=== PATIENT | male | born 1955 | race Caucasian/White ===

== ENCOUNTER → 2018-03-01 08:57 | Outpatient (CLI) | payer OTHER, SELFPAY ==
[2018-03-01 09:54] LABS: Alanine Aminotransferase 37 IU/L (21-72); Albumin 4.5 g/dL (3.5-5.0); Albumin Globulin Ratio 1.6 (1.0-2.8); Alkaline Phosphatase 69 U/L (38-126); Aspartate Aminotransferase 28 IU/L (17-59); BUN Creatinine Ratio 23.3 (6-22); Bilirubin Total 0.7 mg/dL (0.2-1.3); Blood Urea Nitrogen 21 mg/dL (9-20); Calcium 9.1 mg/dL (8.4-10.2); Carbon Dioxide 29 mmol/L (22-32); Chloride 101 mmol/L (98-107); Cholesterol 152 mg/dL (140-199); Estimated Glomerular Filt Rate > 60.0 mL/min (>60); Globulin 2.8 g/dL (1.7-4.1); Glucose 96 mg/dL (80-110); HDL Cholesterol 44 mg/dL (40-60); HEMOLYSIS < 15 (0-50); LDL Cholesterol Calculated 89 mg/dL (<100); Sodium 139 mmol/L (137-145); Total Protein 7.3 g/dL (6.3-8.2); Triglycerides 93 mg/dL (35-150)
[2018-03-01 10:27] LABS: Prostate Specific Antigen Scrn 3.33 ng/mL (0.1-4.0)
== END ==
PROVIDERS: PCP Internal Medicine; Visit Provider Internal Medicine
DX: E78.2 Mixed hyperlipidemia (principal); Z12.5 Encounter for screening for malignant neoplasm of prostate
CPT/HCPCS: 36415; 80053; 80061; G0103

== ENCOUNTER → 2019-04-21 12:07 | Outpatient (CLI) | payer MEDICARE, OTHER, SELFPAY ==
[2019-04-21 13:14] LABS: Alanine Aminotransferase 47 IU/L (<50); Albumin 4.9 g/dL (3.5-5.0); Albumin Globulin Ratio 1.6 (1.0-2.8); Alkaline Phosphatase 96 U/L (38-126); Aspartate Aminotransferase 39 IU/L (17-59); BUN Creatinine Ratio 18.9 (6-22); Bilirubin Total 0.7 mg/dL (0.2-1.3); Blood Urea Nitrogen 18 mg/dL (9-20); Calcium 9.5 mg/dL (8.4-10.2); Carbon Dioxide 30 mmol/L (22-32); Chloride 102 mmol/L (98-107); Cholesterol 174 mg/dL (140-199); Estimated Glomerular Filt Rate > 60.0 mL/min (>60); Globulin 3.1 g/dL (1.7-4.1); Glucose 98 mg/dL (80-110); HDL Cholesterol 46 mg/dL (40-60); HEMOLYSIS < 15 (0-50); LDL Cholesterol Calculated 101 mg/dL (<100); Potassium 4.7 mmol/L (3.4-5.1); Sodium 138 mmol/L (137-145); Triglycerides 135 mg/dL (35-150)
[2019-04-21 13:41] LABS: Prostate Specific Antigen Scrn 3.13 ng/mL (0.1-4.0)
== END ==
PROVIDERS: Family Provider Internal Medicine; PCP Internal Medicine; Referring Provider Internal Medicine; Visit Provider Internal Medicine
DX: Z12.5 Encounter for screening for malignant neoplasm of prostate (principal); Z13.1 Encounter for screening for diabetes mellitus; Z79.899 Other long term (current) drug therapy; E78.2 Mixed hyperlipidemia
CPT/HCPCS: 80053; 80061; G0103

== ENCOUNTER → 2020-04-27 09:42 | Outpatient (CLI) | payer MEDICARE, OTHER, SELFPAY ==
[2020-04-27 10:36] LABS: Alanine Aminotransferase 49 IU/L (<50); Albumin 4.5 g/dL (3.5-5.0); Albumin Globulin Ratio 1.6 (1.0-2.8); Alkaline Phosphatase 85 U/L (38-126); Aspartate Aminotransferase 38 IU/L (17-59); BUN Creatinine Ratio 22.6 (6-22); Bilirubin Total 0.6 mg/dL (0.2-1.3); Blood Urea Nitrogen 19 mg/dL (9-20); Calcium 9.3 mg/dL (8.4-10.2); Carbon Dioxide 28 mmol/L (22-32); Chloride 102 mmol/L (98-107); Cholesterol 168 mg/dL (140-199); Estimated Glomerular Filt Rate > 60.0 mL/min (>60); Globulin 2.8 g/dL (1.7-4.1); Glucose 97 mg/dL (80-110); HDL Cholesterol 52 mg/dL (40-60); HEMOLYSIS < 15 (0-50); LDL Cholesterol Calculated 87 mg/dL (<100); Sodium 137 mmol/L (137-145); Total Protein 7.3 g/dL (6.3-8.2); Triglycerides 145 mg/dL (35-150)
[2020-04-27 11:05] LABS: Prostate Specific Antigen Scrn 3.74 ng/mL (0.1-4.0)
== END ==
PROVIDERS: Family Provider Internal Medicine; PCP Internal Medicine; Referring Provider Internal Medicine; Visit Provider Internal Medicine
DX: E78.2 Mixed hyperlipidemia (principal); Z12.5 Encounter for screening for malignant neoplasm of prostate
CPT/HCPCS: 36415; 80053; 80061; G0103

== ENCOUNTER → 2021-04-29 11:02 | Outpatient (CLI) | payer MEDICARE, OTHER, SELFPAY ==
[2021-04-29 12:41] LABS: Alanine Aminotransferase 31 IU/L (<50); Albumin 4.4 g/dL (3.5-5.0); Albumin Globulin Ratio 1.8 (1.0-2.8); Alkaline Phosphatase 75 U/L (38-126); Aspartate Aminotransferase 27 IU/L (17-59); BUN Creatinine Ratio 17.2 (6-22); Bilirubin Total 0.7 mg/dL (0.2-1.3); Blood Urea Nitrogen 15 mg/dL (9-20); Calcium 8.9 mg/dL (8.4-10.2); Carbon Dioxide 28 mmol/L (22-32); Chloride 102 mmol/L (98-107); Cholesterol 149 mg/dL (140-199); Estimated Glomerular Filt Rate > 60.0 mL/min (>60); Globulin 2.5 g/dL (1.7-4.1); Glucose 87 mg/dL (80-110); HDL Cholesterol 53 mg/dL (40-60); HEMOLYSIS < 15 (0-50); LDL Cholesterol Calculated 84 mg/dL (<100); Potassium 4.5 mmol/L (3.4-5.1); Sodium 139 mmol/L (137-145); Total Protein 6.9 g/dL (6.3-8.2); Triglycerides 59 mg/dL (35-150)
[2021-04-29 13:11] LABS: Prostate Specific Antigen Scrn 3.54 ng/mL (0.1-4.0)
== END ==
PROVIDERS: Family Provider Internal Medicine; PCP Internal Medicine; Referring Provider Internal Medicine; Visit Provider Internal Medicine
DX: E78.2 Mixed hyperlipidemia (principal); Z12.5 Encounter for screening for malignant neoplasm of prostate; Z79.899 Other long term (current) drug therapy
CPT/HCPCS: 36415; 80053; 80061; G0103

== ENCOUNTER → 2022-05-02 11:23 | Outpatient (CLI) | payer MEDICARE, OTHER, SELFPAY ==
[2022-05-02 12:26] LABS: Alanine Aminotransferase 41 IU/L (<50); Albumin 4.3 g/dL (3.5-5.0); Albumin Globulin Ratio 1.4 (1.0-2.8); Alkaline Phosphatase 71 U/L (38-126); Aspartate Aminotransferase 32 IU/L (17-59); BUN Creatinine Ratio 22.8 (6-22); Bilirubin Total 0.6 mg/dL (0.2-1.3); Blood Urea Nitrogen 18 mg/dL (9-20); Calcium 8.8 mg/dL (8.4-10.2); Carbon Dioxide 29 mmol/L (22-32); Chloride 104 mmol/L (98-107); Cholesterol 147 mg/dL (140-199); Estimated Glomerular Filt Rate > 60 mL/min (>60); Globulin 3.1 g/dL (1.7-4.1); Glucose 88 mg/dL (80-110); HDL Cholesterol 55 mg/dL (40-60); HEMOLYSIS < 15 (0-50); LDL Cholesterol Calculated 78 mg/dL (<100); Sodium 139 mmol/L (137-145); Total Protein 7.4 g/dL (6.3-8.2); Triglycerides 71 mg/dL (35-150)
[2022-05-02 12:55] LABS: Prostate Specific Antigen Scrn 4.86 ng/mL (0.1-4.0)
[2022-05-08 08:22] LABS: PSA Free % 13.6
[2022-05-08 08:24] LABS: PSA, Total 6.6
== END ==
PROVIDERS: Family Provider Internal Medicine; PCP Internal Medicine; Referring Provider Internal Medicine; Visit Provider Internal Medicine
DX: E78.2 Mixed hyperlipidemia (principal); Z12.5 Encounter for screening for malignant neoplasm of prostate; R97.20 Elevated prostate specific antigen [PSA]
CPT/HCPCS: 36415; 80053; 80061; 84153; 84154; G0103

== ENCOUNTER → 2022-10-03 10:24 | Outpatient (CLI) | payer MEDICARE, OTHER, SELFPAY ==
[2022-10-03 11:44] LABS: Prostate Specific Antigen 4.58 ng/mL (0.10-4.00)
== END ==
PROVIDERS: Family Provider Internal Medicine; PCP Internal Medicine; Referring Provider Internal Medicine; Visit Provider Internal Medicine
DX: R97.20 Elevated prostate specific antigen [PSA] (principal)
CPT/HCPCS: 36415; 84153

== ENCOUNTER → 2023-05-04 11:15 | Outpatient (CLI) | payer MEDICARE, OTHER, SELFPAY ==
[2023-05-04 12:08] LABS: Add Manual Diff / Slide Review NO; Basophils Absolute Auto 0 /uL (0-100); Basophils Percent Auto 0.8 % (0-2); Eosinophils Absolute Auto 100 /uL (0-450); Eosinophils Percent Auto 3.7 % (2-4); Hematocrit 41.3 % (41-53); Hemoglobin 14.4 g/dL (13.5-17.5); Lymphocytes Absolute Auto 1400 /uL (1100-4500); Lymphocytes Percent Auto 40.3 % (25-40); Mean Corpuscular HGB Conc 34.8 % (30-36); Mean Corpuscular Hemoglobin 30.8 PG (26-34); Mean Corpuscular Volume 88.5 fL (80-100); Monocytes Absolute Auto 200 /uL (0-900); Monocytes Percent Auto 6.5 % (3-14); Neutrophils Absolute Auto 1800 /uL (1500-7000); Neutrophils Percent Auto 48.7 % (50-75); Platelet Count 184 X10^3/uL (150-400); Red Blood Cell Count 4.67 X10^6/uL (4.5-5.9); Red Cell Distribution Width 13.1 % (11.6-14.8); White Blood Cell Count 3.6 X10^3/uL (4.5-11.0)
[2023-05-04 12:33] LABS: Alanine Aminotransferase 34 IU/L (<50); Albumin 4.3 g/dL (3.5-5.0); Albumin Globulin Ratio 1.4 (1.0-2.8); Alkaline Phosphatase 70 U/L (38-126); Aspartate Aminotransferase 41 IU/L (17-59); BUN Creatinine Ratio 20.5 (6-22); Bilirubin Total 0.8 mg/dL (0.2-1.3); Blood Urea Nitrogen 17 mg/dL (9-20); Carbon Dioxide 29 mmol/L (22-32); Chloride 106 mmol/L (98-107); Cholesterol 134 mg/dL (140-199); Estimated Glomerular Filt Rate > 60 mL/min (>60); Glucose 94 mg/dL (80-110); HDL Cholesterol 50 mg/dL (40-60); HEMOLYSIS 50 (0-50); LDL Cholesterol Calculated 70 mg/dL (<100); Potassium 4.5 mmol/L (3.4-5.1); Sodium 139 mmol/L (137-145); Total Protein 7.3 g/dL (6.3-8.2); Triglycerides 69 mg/dL (35-150)
[2023-05-04 13:06] LABS: Prostate Specific Antigen 8.99 ng/mL (0.10-4.00)
== END ==
PROVIDERS: Family Provider Internal Medicine; PCP Internal Medicine; Referring Provider Internal Medicine; Visit Provider Internal Medicine
DX: R97.20 Elevated prostate specific antigen [PSA] (principal); E78.2 Mixed hyperlipidemia; D64.9 Anemia, unspecified
CPT/HCPCS: 36415; 80053; 80061; 84153; 85025

== ENCOUNTER → 2023-06-23 10:58 | Outpatient (CLI) | payer MEDICARE, OTHER, SELFPAY ==
--- NOTE | 2023-06-23 11:00 | DI.MRI.S_ITS ---
PROCEDURE: MR PELVIC PROSTATE PROTOCOL INDICATIONS: Elevated and rising PSA TECHNIQUE: Coronal HASTE, axial T1 FSE with fat saturation, 3-plane nonbreath-hold T2 FSE. After the administration of contrast, dynamic axial, delayed axial and coronal VIBE or 2-D FLASH with fat saturation through the pelvis. Diffusion weighted imaging and ADC was performed. COMPARISON: None. FINDINGS: Image quality: Diffusion weighted and dynamic contrast enhanced images are diagnostic. Prostate: Gland size is 5.3 x 5.5 x 5.8 cm; ellipsoid gland volume is 88 mL. PSA density of 0.10. Encapsulated and partially encapsulated nodules within the transition zone; PI-RADS 1-2. No PI-RADS 3 through 5 lesions. Genitourinary system: Bladder wall thickness is normal. Distal ureters are non distended. Small bilateral testicular hydroceles. Bowel and peritoneum: No pathologic free pelvic fluid. Inferior colon and small bowel loops are normal in caliber. Nodes and vessels: No pelvic or inguinal adenopathy by size criteria. Iliac vessels are normal in caliber. Soft tissues: No inguinal hernias. Bones: Marrow demonstrates normal overall signal, without lesions to suggest metastases. IMPRESSION: No PI-RADS 3 through 5 lesions. Dictated by: Ricki Saenz M.D. on 06/25/2023 at 8:54 Approved by: Ricki Saenz M.D. on 06/25/2023 at 9:03
== END ==
LOC: MRI 10:59
PROVIDERS: Family Provider Internal Medicine; PCP Internal Medicine; Referring Provider Urology; Visit Provider Urology
DX: N42.9 Disorder of prostate, unspecified (principal); N43.3 Hydrocele, unspecified; R97.20 Elevated prostate specific antigen [PSA]
CPT/HCPCS: 72197; A9579

== ENCOUNTER → 2023-09-14 10:00 | Outpatient (CLI) | payer MEDICARE, OTHER, SELFPAY ==
[2023-09-15 21:07] LABS: PSA Free % 17.3 % (.); PSA, Total 7.1 ng/mL (0.0-4.0)
== END ==
PROVIDERS: Family Provider Internal Medicine; PCP Internal Medicine; Referring Provider Urology; Visit Provider Urology
DX: R97.20 Elevated prostate specific antigen [PSA] (principal)
CPT/HCPCS: 36415; 84153; 84154

== ENCOUNTER → 2023-12-31 09:58 | Outpatient (CLI) | payer MEDICARE, OTHER, SELFPAY ==
[2024-01-01 07:38] LABS: PSA Free % 14.3 % (.)
== END ==
LOC: LAB 10:00
PROVIDERS: Family Provider Internal Medicine; PCP Internal Medicine; Referring Provider Urology; Visit Provider Urology
DX: R97.20 Elevated prostate specific antigen [PSA] (principal); Z80.42 Family history of malignant neoplasm of prostate
CPT/HCPCS: 36415; 84153; 84154

== ENCOUNTER → 2024-03-31 09:10 | Outpatient (CLI) | payer MEDICARE, OTHER, SELFPAY ==
[2024-04-01 07:09] LABS: PSA Free % 14.3 % (.); PSA, Total 8.7 ng/mL (0.0-4.0)
== END ==
PROVIDERS: Family Provider Internal Medicine; PCP Internal Medicine; Referring Provider Urology; Visit Provider Urology
DX: R33.9 Retention of urine, unspecified (principal); R97.20 Elevated prostate specific antigen [PSA]
CPT/HCPCS: 36415; 84153; 84154

== ENCOUNTER → 2024-05-05 14:00 | Outpatient (CLI) | payer MEDICARE, OTHER, SELFPAY ==
[2024-05-05 15:06] LABS: Alanine Aminotransferase 27 IU/L (<50); Albumin 4.2 g/dL (3.5-5.0); Albumin Globulin Ratio 1.8 (1.0-2.8); Alkaline Phosphatase 60 U/L (38-126); Aspartate Aminotransferase 27 IU/L (17-59); BUN Creatinine Ratio 15.6 (6-22); Bilirubin Total 0.7 mg/dL (0.2-1.3); Blood Urea Nitrogen 15 mg/dL (9-20); Calcium 9.4 mg/dL (8.4-10.2); Carbon Dioxide 30 mmol/L (22-32); Chloride 105 mmol/L (98-107); Cholesterol 145 mg/dL (140-199); Estimated Glomerular Filt Rate > 60 mL/min (>60); Globulin 2.3 g/dL (1.7-4.1); Glucose 92 mg/dL (80-110); HDL Cholesterol 57 mg/dL (40-60); HEMOLYSIS < 15 (0-50); LDL Cholesterol Calculated 75 mg/dL (<100); Potassium 4.6 mmol/L (3.4-5.1); Sodium 140 mmol/L (137-145); Total Protein 6.5 g/dL (6.3-8.2); Triglycerides 67 mg/dL (35-150)
== END ==
PROVIDERS: Family Provider Internal Medicine; PCP Internal Medicine; Referring Provider Internal Medicine; Visit Provider Internal Medicine
DX: E78.2 Mixed hyperlipidemia (principal)
CPT/HCPCS: 36415; 80053; 80061

== ENCOUNTER 2024-05-26 08:09 | Day surgery (SDC) | payer MEDICARE, OTHER, SELFPAY ==
[2024-05-26] VITALS (10 sets, daily range): BP systolic 86–127; BP diastolic 38–75; PULSE 61–99; RESP 12–23; TEMP 36.2–36.6; O2SAT 88–100
--- NOTE | 2024-05-26 | DI.RAD.S_ITS ---
PROCEDURE: XR CHEST 1V INDICATIONS: expiratory wheeze bilaterally post procedure TECHNIQUE: One view of the chest was acquired. COMPARISON: None. FINDINGS: Surgical changes and devices: None. Lungs and pleura: Lungs are clear. No pleural effusions or pneumothorax. Mediastinum: Mediastinal contours appear normal. Heart size is normal. Bones and chest wall: No suspicious bony lesions. Overlying soft tissues appear unremarkable. IMPRESSION: No acute cardiothoracic process. Dictated by: Misbah Elizabeth M.D. on 05/26/2024 at 11:49 Approved by: Misbah Elizabeth M.D. on 05/26/2024 at 11:49
--- NOTE | 2024-05-26 09:00 | P.HP_ITS ---
History of Present Illness History of Present Illness Date Patient Seen: 05/26/24 Chief complaint: SDC Narrative: Follow-up 10 year colonoscopy [facility] Medical History Incomplete emptying of bladder Splitting of urinary stream Secondhand smoke exposure Benign prostatic hyperplasia with lower urinary tract symptoms Family history of prostate cancer Elevated PSA Mixed hyperlipidemia Surgical History [place] teeth removed (04/10/74) History of tonsillectomy Family History Sister Age: 73 Overweight Hypertension Father Cancer Mother Coronary artery disease Other Congestive heart failure Social History marital status: number of children: 4 alcohol intake: current caffeine: Yes Type(s) of exercise: walking frequency: 3-4 times per week Meds Home Medications and Allergies Home Medications Medication Instructions Recorded Confirmed Type aspirin 81 mg tablet,delayed 81 mg PO DAILY 03/07/18 05/26/24 History release simvastatin 20 mg tablet 20 mg PO Q DAY #90 tabs 05/05/24 05/26/24 Rx Allergies Allergy/AdvReac Type Severity Reaction Status Date / Time No Known Drug Allergies Allergy Verified 05/26/24 08:59 Exam Narrative Exam Narrative: Oropharynx free of lesions Chest clear to auscultation percussion Cardiac exam reveals no S3 or murmur Assessment & Plan Assessment & Plan narrative: Follow-up 10 year colonoscopy. Risks, benefits, alternatives have been explained. Time-Based Coding :: [TOTAL MINUTES] spent with patient and on the chart (including review of chart, obtaining history, exam, reviewing outside data, placing orders, documenting exam and treatment plan, and counseling patient) on [DATE]. [employer]EE Subscription Agent Document charge(s): No
--- NOTE | 2024-05-26 09:02 | PM.OP.COLON ---
Operative Date/Time/Diagnoses Date of procedure: 05/26/24 Pre-op diagnosis: See indication Procedure & Clinicians Study performed: Colonoscopy Same procedure as scheduled: Yes Indications: Ten year follow-up screening Surgeon: Khoa Dixon Procedure Notes Procedure in detail: After informed consent was obtained the patient was placed in left lateral decubitus position. The video colonoscope was introduced the rectum slowly advanced cecum. Preparation was good. On slow withdrawal mucosa was carefully examined. The scope was removed. The patient tolerated the procedure well. Blood loss none Complications none Sedation mac Findings 1. Normal colonoscopy to cecum Patient should have follow-up colonoscopy in 10 years
[2024-05-26] MEDS: LACTATED RINGERS 1,000 ML 42 ML IV (09:03)
--- NOTE | 2024-05-26 10:29 | SUR.PHASEI ---
Addendum entered by Tricia Lockhart R.N. 05/26/24 11:04: 1104 - X-ray completed. Lung sounds and cough continue to improve. vital signs remain stable. Anesthesia at bedside to see x-ray. Patient moved to Phase 2 for further care. Addendum entered by Tricia Lockhart R.N. 05/26/24 10:50: Duoneb completed. Patient instructed on Incentive spirometer usage. Reached 4000ml on IS. Left lung remains slightly wheezy. 96% on room air. Anesthesia notified that patient continues to have wheezing. Order for chest xray being placed. Patient awake, alert, and only coughing periodically at this time. Original Note: Arrived to pacu with oral airway in place. Coughing profusely. Assisted with manual jaw lift. Patient began to arouse and airway removed. Continued to cough. Unable to obtain bp's due to coughing. O2 sats remained in the 90's throughout after rousing. Wheezing noted to left side. Anesthesia at bedside to assess, ordered duoneb and incentive spirometer.
[2024-05-26] MEDS: ALBUTEROL/IPRATROPIUM 3 ML AMPUL INH (10:30)
--- NOTE | 2024-05-26 10:52 | P.PN_ITS ---
Exam Vital Signs (past 8 hours): - 05/26/24 09:00 05/26/24 10:00 05/26/24 10:05 Temperature 97.8 F 97.2 F L Pulse Rate 78 99 H 90 Respiratory Rate 16 23 22 Blood Pressure 127/75 Pulse Oximetry 99 88 L 95 Oxygen Delivery Method Room Air Room Air Nasal Cannula Nasal Cannula Oxygen Flow Rate 0 2 05/26/24 10:10 05/26/24 10:15 05/26/24 10:23 Temperature Pulse Rate 88 76 61 Respiratory Rate 18 15 14 Blood Pressure 86/38 L 92/51 L Pulse Oximetry 95 95 95 Oxygen Delivery Method Room Air Room Air Room Air Oxygen Flow Rate 0 0 0 05/26/24 10:35 05/26/24 10:40 05/26/24 10:50 Temperature 97.7 F Pulse Rate 62 61 71 Respiratory Rate 19 16 12 Blood Pressure 94/56 L 93/53 L 99/57 L Pulse Oximetry 96 100 94 Oxygen Delivery Method Room Air Room Air Oxygen Flow Rate 0 0 Oxygen Delivery Method Room Air Oxygen Flow Rate 0 Resp Effort & Inspection: normal respiratory effort, able to speak in complete sentences and symmetric chest movement Auscultation: wheezes Other: pt denies SOB PFSH Medical History Incomplete emptying of bladder Splitting of urinary stream Secondhand smoke exposure Benign prostatic hyperplasia with lower urinary tract symptoms Family history of prostate cancer Elevated PSA Mixed hyperlipidemia Surgical History [place] teeth removed (04/10/74) History of tonsillectomy Family History Sister Age: 73 Overweight Hypertension Father Cancer Mother Coronary artery disease Other Congestive heart failure Social History marital status: number of children: 4 Smoking Status: Never smoker alcohol intake: current caffeine: Yes Type(s) of exercise: walking frequency: 3-4 times per week Comment: Assessment & Plan Assessment and plan Plan duoneb ordered COVID-19 COVID-19 status: Not tested Time-Based Coding :: [TOTAL MINUTES] spent with patient and on the chart (including review of chart, obtaining history, exam, reviewing outside data, placing orders, documenting exam and treatment plan, and counseling patient) on [DATE].
== END 2024-05-26 11:19 | disposition home or self-care (01) ==
PROVIDERS: Family Provider Internal Medicine; PCP Internal Medicine; Referring Provider Internal Medicine Gastroenterology; Visit Provider Internal Medicine Gastroenterology
PROC: 0DJD8ZZ Inspection of Lower Intestinal Tract, Via Natural or Artificial Opening Endoscopic (ICD-10-PCS; CPT 45378; principal; 2024-05-26 09:30)
DX: Z12.11 Encounter for screening for malignant neoplasm of colon (principal)
CPT/HCPCS: G0121; 71045; J2704

== ENCOUNTER → 2024-07-23 09:10 | Outpatient (CLI) | payer MEDICARE, OTHER, SELFPAY ==
[2024-07-24 11:30] LABS: PSA Free % 13.4 % (.)
== END ==
PROVIDERS: Family Provider Internal Medicine; PCP Internal Medicine; Referring Provider Urology; Visit Provider Urology
DX: R97.20 Elevated prostate specific antigen [PSA] (principal); R35.0 Frequency of micturition; N40.1 Benign prostatic hyperplasia with lower urinary tract symptoms
CPT/HCPCS: 36415; 84153; 84154

== ENCOUNTER → 2025-01-20 09:05 | Outpatient (CLI) | payer MEDICARE, OTHER, SELFPAY ==
[2025-01-22 06:36] LABS: PSA, Total 13.0 ng/mL (0.0-4.0)
== END ==
PROVIDERS: Family Provider Internal Medicine; PCP Internal Medicine; Referring Provider Urology; Visit Provider Urology
DX: R97.20 Elevated prostate specific antigen [PSA] (principal); N40.1 Benign prostatic hyperplasia with lower urinary tract symptoms; R35.0 Frequency of micturition
CPT/HCPCS: 36415; 84153; 84154